=== PATIENT | female | born 1955 | race Caucasian/White ===

== ENCOUNTER 2017-11-15 18:33 | Emergency (ER) | payer OTHER ==
[~2017-11-15] VITALS: Ht 167.6 cm; Wt 72.6 kg
[~2017-11-15 18:33] MED LIST: ATEN100T44 PO; INSU100V9 SUBCUT; KLO.5; LIP20 PO; LISI-600 PO; METF1000 PO; NOR10 PO; NORT10CA PO; OMEP20CA10 PO; PARO40TA45 PO
[2017-11-15 18:53] VITALS: BP_SYST 136
[2017-11-15 19:16] LABS: BILIRUBIN,URINE NEGATIVE (NEGATIVE); BLOOD, URINE NEGATIVE (NEGATIVE); CLARITY/URINE CLEAR (CLEAR); COLOR,URINE YELLOW (YELLOW); GLUCOSE,URINE NEGATIVE (NEGATIVE); KETONES,URINE NEGATIVE (NEGATIVE); LEUKOCYTE ESTERASE ,URINE NEGATIVE (NEGATIVE); NITRITE, URINE NEGATIVE (NEGATIVE); PROTEIN URINE NEGATIVE (NEGATIVE); UROBILINOGEN,URINE 0.2 (0.2-1.0)
--- NOTE | 2017-11-15 19:46 | NUR ---
Patient to ER bed 07 to gown for evaluation. Side rails up.
--- NOTE | 2017-11-15 19:55 | NUR ---
Patient AOx4, ambulatory, presents to ER with complaint of abdominal pain radiating to bilateral flanks, painful urination, loss of appetite x2 days. Patient states GILL for a weeks. Patient states hx of recurring UTI. No other symptoms or complaints at this time.
[2017-11-15 20:17] LABS: BASOPHILS % (AUTO) 0.2 % (0.0-2.0); EOSINOPHILS # (AUTO) 0.1 K/uL (0.0-0.4); EOSINOPHILS % (AUTO) 0.4 % (0.0-4.0); LYMPHOCYTES # (AUTO) 4.7 K/uL (1.0-5.5); LYMPHOCYTES % (AUTO) 37.7 % (20.5-51.5); MEAN CORPUSCULAR HEMOGLOBIN 27 pg (27-31); MEAN CORPUSCULAR HGB CONC 33 % (32-36); MEAN CORPUSCULAR VOLUME 83 fL (79.0-98.0); MONOCYTES # (AUTO) 0.7 K/uL (0.0-1.0); MONOCYTES % (AUTO) 5.2 % (1.7-9.3); NEUTROPHILS % (AUTO) 56.5 % (40.0-70.0); PLATELET COUNT (AUTO) 346 K/uL (130-430); RED BLOOD CELL COUNT(AUTO) 5.52 MIL/uL (4.2-6.2); RED CELL DISTRIBUTION WIDTH 13.1 % (9.0-15.0); WHITE BLOOD COUNT (AUTO) 12.5 K/uL (4.8-10.8)
[2017-11-15 20:21] LABS: CALCIUM 9.7 mg/dL (8.4-11.0); CREATININE 1.11 mg/dL (0.55-1.30); POTASSIUM 3.9 mmol/L (3.5-5.1)
[2017-11-15 20:35] LABS: ALBUMIN 4.4 g/dL (3.4-4.8); TOTAL BILIRUBIN 1.3 mg/dL (0.0-1.0)
--- NOTE | 2017-11-15 20:49 | NUR ---
NUSRAT Kim at bedside for medical evaluation.
--- NOTE | 2017-11-15 21:15 | NUR ---
# 20 gauge angiocath placed to left hand. Use of asceptic technique. Opsite placed over site. Blood return noted. Flushed with 10 cc of normal saline. No evidence of infiltration noted. Patient tolerated well.
[2017-11-15] MEDS: KETOROLAC TROMETHAMINE 30 MG VIAL IVP ONE (21:21)
[2017-11-15] MEDS: NACL 0.9% 1,000 ML IV SCH (21:22)
[2017-11-15] MEDS: cefTRIAXone 1 GM IVPB PREMIX 50 ML IV ONE (21:22)
--- NOTE | 2017-11-15 21:30 | NUR ---
No adverse reactions noted after medication administration. Will continue to monitor.
--- NOTE | 2017-11-15 21:45 | NUR ---
IVF infusing with no s/s of infiltration at this time. Will cont to monitor.
[2017-11-15 21:59] VITALS: BP_SYST 129
--- NOTE | 2017-11-15 21:59 | NUR ---
Patient given written and verbal discharge instructions and verbalizes understanding. ER MD discussed with patient the results and treatment provided. Patient in stable condition. ID arm band removed. IV catheter removed intact and dressing applied, no active bleeding. Rx of Bactrim DS given. Patient educated on pain management and to follow up with PMD. Pain Scale 0/10. Opportunity for questions provided and answered.
== END 2017-11-15 21:59 | disposition home or self-care (01) ==
LOC: SED 18:33
DX: R30.0 Dysuria (principal); R10.30 Lower abdominal pain, unspecified; E11.9 Type 2 diabetes mellitus without complications; K21.9 Gastro-esophageal reflux disease without esophagitis; I10 Essential (primary) hypertension; E78.5 Hyperlipidemia, unspecified; Z86.79 Personal history of other diseases of the circulatory system; Z79.899 Other long term (current) drug therapy
CPT/HCPCS: 36415; 80053; 81003; 85025; 87086; 96365; 96375; 99284; J0696; J1885; J7030

== ENCOUNTER 2017-11-26 20:33 | Emergency (ER) | payer OTHER ==
[~2017-11-26] VITALS: Ht 167.6 cm; Wt 72.6 kg
[2017-11-26 20:38] VITALS: BP_SYST 140
[2017-11-26] MEDS ORDERED: SUMAtriptan SUCCINATE 50 MG TABLET PO ONE (20:45)
[2017-11-26] MEDS ORDERED: ONDANSETRON 4 MG ODT TAB PO ONE (20:45)
[2017-11-26] MEDS ORDERED: SUMAtriptan SUCCINATE 50 MG TABLET ONE (20:57)
[2017-11-26] MEDS ORDERED: KETOROLAC TROMETHAMINE 30 MG VIAL IM ONE (21:45)
[2017-11-26 22:30] VITALS: BP_SYST 133
[2017-11-26] MEDS ORDERED: DIPHENHYDRAMINE HCL 25 MG CAPSULE PO ONE (22:30)
[2017-11-26] MEDS ORDERED: traMADol HCL HCL 50 MG TABLET (ULTRAM) PO ONE (22:30)
== END 2017-11-26 22:30 | disposition home or self-care (01) ==
LOC: SED 20:33
DX: G43.909 Migraine, unspecified, not intractable, without status migrainosus (principal); E11.9 Type 2 diabetes mellitus without complications; K21.9 Gastro-esophageal reflux disease without esophagitis; I10 Essential (primary) hypertension; E78.5 Hyperlipidemia, unspecified; Z79.4 Long term (current) use of insulin; Z79.899 Other long term (current) drug therapy
CPT/HCPCS: 96372; 99283; J1885; Q0162; Q0163

== ENCOUNTER 2018-02-06 14:40 | Emergency (ER) | payer OTHER ==
[~2018-02-06] VITALS: Ht 167.6 cm; Wt 72.6 kg
[2018-02-06] MEDS ORDERED: NACL 0.9% 1,000 ML IV ONE (14:52)
[2018-02-06 14:53] VITALS: BP_SYST 90
[2018-02-06 15:21] LABS: BASOPHILS # (AUTO) 0.1 K/uL (0.0-0.2); BASOPHILS % (AUTO) 0.6 % (0.0-2.0); EOSINOPHILS # (AUTO) 0.2 K/uL (0.0-0.4); EOSINOPHILS % (AUTO) 2.5 % (0.0-4.0); HEMATOCRIT 44.2 % (36-48); HEMOGLOBIN 14.1 g/dL (12.0-16.0); LYMPHOCYTES # (AUTO) 2.7 K/uL (1.0-5.5); MEAN CORPUSCULAR HEMOGLOBIN 27 pg (27-31); MEAN CORPUSCULAR HGB CONC 32 % (32-36); MEAN CORPUSCULAR VOLUME 83 fL (79.0-98.0); MONOCYTES # (AUTO) 0.7 K/uL (0.0-1.0); MONOCYTES % (AUTO) 7.5 % (1.7-9.3); NEUTROPHILS # (AUTO) 5.2 K/uL (1.8-7.7); NEUTROPHILS % (AUTO) 58.4 % (40.0-70.0); PLATELET COUNT (AUTO) 265 K/uL (130-430); RED BLOOD CELL COUNT(AUTO) 5.32 MIL/uL (4.2-6.2); RED CELL DISTRIBUTION WIDTH 13.9 % (9.0-15.0); WHITE BLOOD COUNT (AUTO) 8.9 K/uL (4.8-10.8)
[2018-02-06 15:34] LABS: PROTHROMBIN TIME 10.5 SECS (9.5-12.5)
[2018-02-06 15:44] LABS: BILIRUBIN,URINE NEGATIVE (NEGATIVE); BLOOD, URINE 1+ (NEGATIVE); CLARITY/URINE CLOUDY (CLEAR); COLOR,URINE YELLOW (YELLOW); GLUCOSE,URINE NEGATIVE (NEGATIVE); KETONES,URINE TRACE (NEGATIVE); LEUKOCYTE ESTERASE ,URINE 2+ (NEGATIVE); NITRITE, URINE POSITIVE (NEGATIVE); PH,URINE 5.5 (5.0-8.0); PROTEIN URINE 2+ (NEGATIVE); UROBILINOGEN,URINE 0.2 (0.2-1.0)
[2018-02-06 15:45] LABS: BACTERIA,URINE MANY /HPF (None Seen); WBC,URINE >100 /HPF (0-3)
[2018-02-06 15:46] LABS: MUCUS,URINE None Seen /LPF (None Seen)
[2018-02-06] MEDS ORDERED: cefTRIAXone 1 GM in D5W 50 ML IV ONE (16:15)
[2018-02-06 16:21] LABS: ANION GAP 16 (5-15); CALCIUM 9.6 mg/dL (8.4-11.0); CHLORIDE 95 mmol/L (98-107); CREATININE 2.08 mg/dL (0.55-1.30); POTASSIUM 4.1 mmol/L (3.5-5.1); SODIUM SERUM 132 mmol/L (136-145); UREA NITROGEN, BLOOD 22 mg/dL (8-21)
[2018-02-06 16:24] LABS: GFR AFRICAN AMERICAN 31 mL/min (>90)
[2018-02-06 16:25] LABS: ALANINE AMINOTRANSFERASE 62 U/L (12-78); ALBUMIN 4.4 g/dL (3.4-4.8); ASPARTATE AMINOTRANSFERASE 44 U/L (10-37); LIPASE 127 U/L (73-393); TOTAL BILIRUBIN 1.3 mg/dL (0.0-1.0)
[2018-02-06 16:30] LABS: ALCOHOL, BLOOD < 3 mg/dL (<10); GLUCOSE 417 mg/dL (70-99)
[2018-02-06] MEDS ORDERED: cefTRIAXone 1 GM VIAL ONE (16:49)
[2018-02-06] MEDS ORDERED: INSULIN REGULAR, HUMAN 10 UNITS/0.1 ML INJ IVP ONE (17:00)
[2018-02-06 17:09] LABS: CKMB RELATIVE INDEX 0.9 (0.0-2.9)
[2018-02-06 17:16] LABS: BARBITURATE, URINE NEGATIVE (NEG <=200); BENZODIAZEPINE, URINE NEGATIVE (NEG <=150); CANNABINOID, URINE NEGATIVE (NEG <=50); COCAINE, URINE NEGATIVE (NEG <=150); METHAMPHETAMINES SCREEN,URINE NEGATIVE (NEG <=500); OPIATE, URINE NEGATIVE (NEG <=100); PHENCYCLIDINE SCREEN,URINE NEGATIVE (NEG <=25); UR TRICYCLIC ANTIDEPRESSANTS NEGATIVE (NEG <=300); URINE AMPHETAMINE NEGATIVE (NEG <=500); URINE METHADONE NEGATIVE (NEG <=200); URINE OXYCODONE SCREEN NEGATIVE (NEG <=100); URINE PROPOXYPHENE SCREEN NEGATIVE (NEG <=300)
[2018-02-06] MEDS ORDERED: ACETAMINOPHEN 500 MG TABLET PO ONE (17:45)
[2018-02-06] MEDS ORDERED: MECLIZINE HCL 25 MG TABLET (ANITVERT) PO ONE (17:45)
[2018-02-06 17:55] LABS: CREATININE 1.71 mg/dL (0.55-1.30); POTASSIUM 3.6 mmol/L (3.5-5.1)
[2018-02-06 19:21] VITALS: BP_SYST 140
== END 2018-02-06 19:21 | disposition home or self-care (01) ==
LOC: SED 14:40
DX: N30.90 Cystitis, unspecified without hematuria (principal); N39.0 Urinary tract infection, site not specified; E11.9 Type 2 diabetes mellitus without complications; K21.9 Gastro-esophageal reflux disease without esophagitis; I10 Essential (primary) hypertension; E78.5 Hyperlipidemia, unspecified; Z90.49 Acquired absence of other specified parts of digestive tract; Z90.710 Acquired absence of both cervix and uterus; Z79.899 Other long term (current) drug therapy
CPT/HCPCS: 36415; 71045; 74176; 80048; 80053; 80307; 81000; 82550; 82553; 83690; 84484; 85025; 85610; 85730; 87086; 87186; 93005; 96361; 96365; 96375; 99285; G0482; J0696; J7030; J8597; J1815

== ENCOUNTER 2018-07-25 12:15 | Emergency (ER) | payer OTHER ==
[~2018-07-25] VITALS: Ht 167.6 cm; Wt 74.8 kg
[~2018-07-25 12:15] MED LIST changes: +ATEN-168 PO; -ATEN100T44 PO; +PARO40TA PO; -PARO40TA45 PO
[2018-07-25 12:24] VITALS: BP_SYST 148
--- NOTE | 2018-07-25 12:30 | NUR ---
ER at bedside examining patient.
--- NOTE | 2018-07-25 12:30 | NUR ---
Patient to ER bed 3 to gown for evaluation. Side rails up. Report given to Donal MILLER.
--- NOTE | 2018-07-25 12:35 | NUR ---
Pt presents to ER c/o 05/27 pain to L side of body s/p mechanical fall this morning. Pt denies loss of consciousness, denies head traumal. Pt AOX4, ambulatory, denies nausea or vomiting.
[2018-07-25] MEDS ORDERED: KETOROLAC TROMETHAMINE 60 MG/2 ML VIAL IM ONE (12:45)
--- NOTE | 2018-07-25 12:47 | NUR ---
Pt taken to radiology via gurney in stable condition
--- NOTE | 2018-07-25 13:04 | NUR ---
Pt returned from radiology via rrye in stable condition
--- NOTE | 2018-07-25 13:06 | NUR ---
Toradol 60mg IM to R gluteus justin administered. Pt tolerated well. No adverse reactions noted.
--- NOTE | 2018-07-25 13:43 | NUR ---
Dr. Ruby at bedside speaking with pt discussing results.
[2018-07-25 13:53] VITALS: BP_SYST 133
--- NOTE | 2018-07-25 13:53 | NUR ---
Patient given written and verbal discharge instructions and verbalizes understanding. ER MD Ruby discussed with patient the results and treatment provided. Patient in stable condition. ID arm band removed. Rx of Motrin given. Patient educated on pain management and to follow up with PMD. Pain Scale 0. Opportunity for questions provided and answered. Medication side effect fact sheet provided.
== END 2018-07-25 13:53 | disposition home or self-care (01) ==
LOC: SED 12:15
DX: S70.02XA Contusion of left hip, initial encounter (principal); S80.02XA Contusion of left knee, initial encounter; K21.9 Gastro-esophageal reflux disease without esophagitis; E78.5 Hyperlipidemia, unspecified; E11.9 Type 2 diabetes mellitus without complications; I10 Essential (primary) hypertension; Z86.79 Personal history of other diseases of the circulatory system; Z79.899 Other long term (current) drug therapy; W10.9XXA Fall (on) (from) unspecified stairs and steps, initial encounter; Y93.89 Activity, other specified; Y92.89 Other specified places as the place of occurrence of the external cause; Y99.8 Other external cause status
CPT/HCPCS: 73502; 73590; 96372; 99284; J1885

== ENCOUNTER 2019-02-13 19:05 | Emergency (ER) | payer OTHER ==
[~2019-02-13] VITALS: Ht 167.6 cm; Wt 77.1 kg
[2019-02-13 19:14] VITALS: BP_SYST 164
[2019-02-13] MEDS ORDERED: ASPIRIN 81 MG TAB.CHEW PO ONE (19:30)
[2019-02-13 20:00] LABS: BASOPHILS % (AUTO) 0.7 % (0.0-2.0); EOSINOPHILS # (AUTO) 0.3 K/uL (0.0-0.4); HEMATOCRIT 37.9 % (36-48); HEMOGLOBIN 12.8 g/dL (12.0-16.0); LYMPHOCYTES # (AUTO) 3.1 K/uL (1.0-5.5); LYMPHOCYTES % (AUTO) 45.7 % (20.5-51.5); MEAN CORPUSCULAR HEMOGLOBIN 28 pg (27-31); MEAN CORPUSCULAR HGB CONC 34 % (32-36); MEAN CORPUSCULAR VOLUME 83 fL (79.0-98.0); MONOCYTES # (AUTO) 0.6 K/uL (0.0-1.0); MONOCYTES % (AUTO) 8.7 % (1.7-9.3); NEUTROPHILS # (AUTO) 2.7 K/uL (1.8-7.7); NEUTROPHILS % (AUTO) 40.9 % (40.0-70.0); PLATELET COUNT (AUTO) 209 K/uL (130-430); RED BLOOD CELL COUNT(AUTO) 4.54 MIL/uL (4.2-6.2); RED CELL DISTRIBUTION WIDTH 14.2 % (9.0-15.0); WHITE BLOOD COUNT (AUTO) 6.7 K/uL (4.8-10.8)
[2019-02-13] MEDS ORDERED: NITROGLYCERIN 0.4 MG TAB.SUBL SL ONE (20:15)
[2019-02-13 20:18] LABS: CALCIUM 8.7 mg/dL (8.4-11.0); CREATININE 0.78 mg/dL (0.55-1.30); POTASSIUM 3.6 mmol/L (3.5-5.1)
[2019-02-13 20:21] LABS: PROTHROMBIN TIME 9.9 SECS (9.5-12.5)
[2019-02-13 20:23] LABS: ALBUMIN 3.8 g/dL (3.4-4.8); TOTAL BILIRUBIN 0.7 mg/dL (0.0-1.0)
[2019-02-13 20:51] LABS: CKMB RELATIVE INDEX 2.2 (0.0-2.9); CREATINE KINASE MB 6.1 ng/mL (0-3.6)
[2019-02-13] MEDS ORDERED: MORPHINE 4 MG/ML INJ. SYRINGE IVP ONE (22:00)
[2019-02-13 23:21] VITALS: BP_SYST 129
[2019-02-14] MEDS ORDERED: LEVALBUTEROL HCL 0.63 MG/3 ML VIAL.NEB INH ONE (08:07)
== END 2019-02-13 23:21 | disposition short-term general hospital (02) ==
LOC: SED 19:05
DX: R07.89 Other chest pain (principal); K21.9 Gastro-esophageal reflux disease without esophagitis; E11.9 Type 2 diabetes mellitus without complications; I10 Essential (primary) hypertension; Z86.79 Personal history of other diseases of the circulatory system; Z90.49 Acquired absence of other specified parts of digestive tract; Z90.710 Acquired absence of both cervix and uterus; Z79.899 Other long term (current) drug therapy
CPT/HCPCS: 36415; 71045; 80053; 82550; 82553; 84484; 85025; 85379; 85610; 85730; 96374; 99285; J2270; 93005; J7614

== ENCOUNTER 2019-12-02 14:32 | Emergency (ER) | payer OTHER ==
[~2019-12-02] VITALS: Ht 167.6 cm; Wt 77.1 kg
[~2019-12-02 14:32] MED LIST changes: -OMEP20CA10 PO; +OMEP20CA11 PO
[2019-12-02 15:09] VITALS: BP_SYST 164
== END 2019-12-02 17:06 | disposition left against medical advice (07) ==
LOC: SED 14:32
DX: R73.9 Hyperglycemia, unspecified (principal); Z53.21 Procedure and treatment not carried out due to patient leaving prior to being seen by health care provider
CPT/HCPCS: 82962

== ENCOUNTER 2020-04-17 16:12 | Emergency (ER) | payer OTHER ==
[~2020-04-17] VITALS: Ht 167.6 cm; Wt 79.4 kg
[2020-04-17 16:20] VITALS: BP_SYST 161
--- NOTE | 2020-04-17 17:10 | NUR ---
Patient to ER bed HALLWAY to gown for evaluation. Side rails up. Report RECEIVED.
--- NOTE | 2020-04-17 17:12 | NUR ---
ER at bedside examining patient.
[2020-04-17 17:20] VITALS: BP_SYST 161
--- NOTE | 2020-04-17 17:20 | NUR ---
Patient given written and verbal discharge instructions and verbalizes understanding. DR. CLARISSA SILVERIO MD discussed with patient the results and treatment provided. Patient in stable condition. ID arm band removed. Rx of DEBROX given. Patient educated on pain management and to follow up with PMD. Pain Scale 0/10. Opportunity for questions provided and answered. Medication side effect fact sheet provided.
== END 2020-04-17 17:20 | disposition home or self-care (01) ==
LOC: SED 16:12
DX: H61.23 Impacted cerumen, bilateral (principal); I10 Essential (primary) hypertension; E11.9 Type 2 diabetes mellitus without complications; K21.9 Gastro-esophageal reflux disease without esophagitis; Z86.73 Personal history of transient ischemic attack (TIA), and cerebral infarction without residual deficits; Z90.49 Acquired absence of other specified parts of digestive tract; Z90.710 Acquired absence of both cervix and uterus; Z79.899 Other long term (current) drug therapy; Z79.4 Long term (current) use of insulin
CPT/HCPCS: 99282

== ENCOUNTER 2020-07-02 12:08 | Emergency (ER) | payer OTHER ==
[~2020-07-02] VITALS: Ht 167.6 cm; Wt 77.1 kg
[2020-07-02 12:27] VITALS: BP_SYST 143
--- NOTE | 2020-07-02 15:40 | NUR ---
Patient to ER bed H1 for evaluation.
--- NOTE | 2020-07-02 15:42 | NUR ---
Patient arrived in the ED c/o low blood pressure, headaches, back pain and weakness that started 2 days ago. Denied any chest pain or shortness of breath. Denied any fevers, chills, nausea or vomiting. Patient is alert and oriented x4, respirations even and unlabored, speaking in full sentences, and ambulating with a steady gait. VSS, pain level 5/10. Informed of the approximate wait time. Instructed to notify ED staff for any changes in condition or worsening of symptoms while waiting to be seen by an ED provider. Patient verbalized understanding.
--- NOTE | 2020-07-02 15:55 | NUR ---
ER Dr. Cabrera at bedside examining patient.
--- NOTE | 2020-07-02 16:39 | NUR ---
Patient given written and verbal discharge instructions and verbalizes understanding. ER MD discussed with patient the results and treatment provided. Patient in stable condition. ID arm band removed. No Rx given. Patient educated on pain management and to follow up with PMD. Pain Scale 0/10. Opportunity for questions provided and answered. Medication side effect fact sheet provided.
[2020-07-02 16:40] VITALS: BP_SYST 138
== END 2020-07-02 16:40 | disposition home or self-care (01) ==
LOC: SED 12:08
DX: R09.89 Other specified symptoms and signs involving the circulatory and respiratory systems (principal); I10 Essential (primary) hypertension; E11.9 Type 2 diabetes mellitus without complications; K21.9 Gastro-esophageal reflux disease without esophagitis; Z79.899 Other long term (current) drug therapy; Z79.4 Long term (current) use of insulin
CPT/HCPCS: 99281

== ENCOUNTER 2020-10-08 14:18 | Emergency (ER) | payer OTHER, SELFPAY ==
[~2020-10-08] VITALS: Ht 167.6 cm; Wt 74.8 kg
[~2020-10-08 14:18] MED LIST changes: -OMEP20CA11 PO; +OMEP20CA15 PO
[2020-10-08 14:20] VITALS: BP_SYST 135
--- NOTE | 2020-10-08 14:20 | NUR ---
TRIAGED AND PT TO REMAIN IN TENT UNTIL AVAILABLE ER BED.
--- NOTE | 2020-10-08 15:10 | NUR ---
DR RHODES OUTSIDE TO TENT FOR EVALUATION
--- NOTE | 2020-10-08 16:00 | NUR ---
Patient given written and verbal discharge instructions and verbalizes understanding. ER MD discussed with patient the results and treatment provided. Patient in stable condition. ID arm band removed. Rx of NONE given. Patient educated on pain management and to follow up with PMD. Pain Scale 0/10. Opportunity for questions provided and answered. Medication side effect fact sheet provided.
== END 2020-10-08 16:00 | disposition home or self-care (01) ==
LOC: SED 14:18
DX: B34.9 Viral infection, unspecified (principal); I10 Essential (primary) hypertension; E11.9 Type 2 diabetes mellitus without complications; K21.9 Gastro-esophageal reflux disease without esophagitis; Z86.73 Personal history of transient ischemic attack (TIA), and cerebral infarction without residual deficits; Z79.899 Other long term (current) drug therapy; Z79.4 Long term (current) use of insulin; Z20.828 Contact with and (suspected) exposure to other viral communicable diseases
CPT/HCPCS: 99283; C9803; U0003

== ENCOUNTER 2022-07-29 07:44 | Observation (INO) | payer OTHER, MEDICAID ==
[~2022-07-29] VITALS: Ht 167.6 cm; Wt 73.5 kg
[~2022-07-29 07:44] MED LIST changes: -LISI-600 PO; +LISI20TA30 PO; +NIRM1TAB PO
[2022-07-29 07:50] VITALS: BP_SYST 133
--- NOTE | 2022-07-29 07:50 | NUR ---
RECEIVED PT FROM PAUL ROLDAN. DR. ROMO AT BEDSIDE TO ASSESS PT. PT BIBS WITH C/O PRODUCTIVE COUGH WITH GREEN EXPECTORANT AND C/P. PT IS AAOX4, DIAPHORETIC. NORMAL S1S2 NOTED. RESP E/U. ON R/A. VSS. ABDOMEN SOFT, NONTENDER, NONDISTENDED. DENIES N/V/C/D. DISTAL PULSES NORMAL, SKIN WARM, INTACT, NO EDEMA. SIDERAILS UP X2.
--- NOTE | 2022-07-29 08:02 | NUR ---
EKG AND CXR OBTAINED.
--- NOTE | 2022-07-29 08:25 | NUR ---
# 22 gauge angiocath placed to LFA. Use of asceptic technique. Opsite placed over site. Blood return noted. Blood for lab drawn from site. Flushed with 10 cc of normal saline. No evidence of infiltration noted. Patient tolerated well. LABS OBTAINED.
--- NOTE | 2022-07-29 08:45 | NUR ---
CONFIRMED NITRO TOPICAL ORDER WITH DR. ROMO WHO STATED, "PLEASE GIVE NITRO PASTE TOPICAL X1 NOW.
[2022-07-29 08:46] LABS: BASOPHILS # (AUTO) 0.2 K/uL (0.0-0.2); BASOPHILS % (AUTO) 2.5 % (0.0-2.0); EOSINOPHILS # (AUTO) 0.2 K/uL (0.0-0.4); EOSINOPHILS % (AUTO) 1.6 % (0.0-4.0); HEMATOCRIT 45.2 % (36-48); HEMOGLOBIN 15.2 g/dL (12.0-16.0); LYMPHOCYTES # (AUTO) 2.6 K/uL (1.0-5.5); LYMPHOCYTES % (AUTO) 26.4 % (20.5-51.5); MEAN CORPUSCULAR HEMOGLOBIN 29 pg (27-31); MEAN CORPUSCULAR HGB CONC 34 % (32-36); MEAN CORPUSCULAR VOLUME 85 fL (79.0-98.0); MONOCYTES # (AUTO) 0.6 K/uL (0.0-1.0); MONOCYTES % (AUTO) 5.7 % (1.7-9.3); NEUTROPHILS # (AUTO) 6.4 K/uL (1.8-7.7); NEUTROPHILS % (AUTO) 63.8 % (40.0-70.0); PLATELET COUNT (AUTO) 266 K/uL (130-430); RED BLOOD CELL COUNT(AUTO) 5.35 MIL/uL (4.2-6.2); RED CELL DISTRIBUTION WIDTH 14.1 % (9.0-15.0)
--- NOTE | 2022-07-29 08:57 | NUR ---
PT DIAPHORETIC, BS 357.
[2022-07-29] MEDS ORDERED: MORPHINE 4 MG INJ. 4 MG/ML VIAL IVP ONE ×2 (09:00→09:15)
[2022-07-29] MEDS ORDERED: NITROGLYCERIN 1 INCH (GM) OINT. TP ONE ×2 (09:00→23:30)
[2022-07-29] MEDS ORDERED: ENOXAPARIN SODIUM 60 MG/0.6 ML SYRINGE SUBCUT ONE (09:00)
[2022-07-29 09:14] LABS: CALCIUM 9.2 mg/dL (8.4-11.0); CREATININE 1.31 mg/dL (0.55-1.30); POTASSIUM 4.4 mmol/L (3.5-5.1)
[2022-07-29] MEDS ORDERED: ASPIRIN 325 MG TABLET (ECOTRIN) PO ONE (09:15)
[2022-07-29 09:20] LABS: ALBUMIN 3.8 g/dL (3.4-4.8); TOTAL BILIRUBIN 2.4 mg/dL (0.0-1.0)
--- NOTE | 2022-07-29 09:28 | NUR ---
DR. ROMO MADE AWARE THAT PT'S TROPONIN 84.
[2022-07-29] MEDS ORDERED: ONDANSETRON HCL 4 MG/2 ML VIAL IVP ONE (09:45)
[2022-07-29] MEDS ORDERED: LIP20 PO (09:53)
[2022-07-29] MEDS ORDERED: FLUT16SP16 NS (09:53)
[2022-07-29] MEDS ORDERED: CHOLESTYRAMINE PO (09:53)
[2022-07-29] MEDS ORDERED: SEMA1PEN3 SQ (09:53)
[2022-07-29] MEDS ORDERED: VENL37.55 PO (09:53)
[2022-07-29] MEDS ORDERED: OMEP20CA15 PO (09:53)
[2022-07-29] MEDS ORDERED: GABA-529 PO (09:53)
[2022-07-29] MEDS ORDERED: L.RH1CAP PO (09:53)
[2022-07-29] MEDS ORDERED: BUSP10TA3 PO (09:53)
[2022-07-29] MEDS ORDERED: CETI10CA PO (09:53)
[2022-07-29] MEDS ORDERED: INSU100V7 SUBCUT (09:53)
[2022-07-29] MEDS ORDERED: LISI20TA30 PO (09:53)
[2022-07-29] MEDS ORDERED: ATEN100T PO (09:53)
--- NOTE | 2022-07-29 09:55 | NUR ---
DR. JANG AT BEDSIDE TO ASSESS PT AND DISCUSS POC.
--- NOTE | 2022-07-29 09:55 | NUR ---
URINE OBTAINED AND TAKEN TO LAB.
[2022-07-29] MEDS ORDERED: NACL 0.9% 2,000 ML IV ONE (10:00)
--- NOTE | 2022-07-29 10:03 | NUR ---
MED REC COMPLETED, BELONGINGS LIST COMPLETED, URINE OBTAINED.
--- NOTE | 2022-07-29 10:10 | NUR ---
[facility] OBTAINED AND TAKEN TO LAB.
[2022-07-29] MEDS ORDERED: 0.45% NACL 1,000 ML IV ONE (10:15)
[2022-07-29] MEDS ORDERED: cefTRIAXone 1 GM VIAL ONE (10:28)
[2022-07-29] MEDS ORDERED: LIPASE/PROTEASE/AMYLASE 1 CAP PO ONE (10:30)
[2022-07-29 10:31] LABS: BILIRUBIN,URINE NEGATIVE (NEGATIVE); BLOOD, URINE NEGATIVE (NEGATIVE); CLARITY/URINE CLEAR (CLEAR); COLOR,URINE YELLOW (YELLOW); GLUCOSE,URINE 1+ (NEGATIVE); KETONES,URINE NEGATIVE (NEGATIVE); LEUKOCYTE ESTERASE ,URINE 2+ (NEGATIVE); NITRITE, URINE NEGATIVE (NEGATIVE); PROTEIN URINE NEGATIVE (NEGATIVE); UROBILINOGEN,URINE 0.2 (0.2-1.0)
--- NOTE | 2022-07-29 10:37 | NUR ---
Admit bed requested Patient will be admitted to care of . Admitted to TELEMETRY unit. Diagnosis CHEST PAIN Inpatient (Yes or No) NO Observation (Yes or No) YES Orientation concerns or request close to nursing station (Yes or No) NO Covid Status PENDING On vent or bipap NO Isolation requirements PENDING Needs a sitter NO From Home (Yes or if No enter name of facility) YES Requires Dialysis (Yes or No) NO Med Rec Completed (Yes of No) YES
[2022-07-29] MEDS: INSULIN GLARGINE 100 UNITS/ML, 10 ML VIAL SUBCUT SCH (10:40)
[2022-07-29 10:55] LABS: BACTERIA,URINE FEW /HPF (None Seen); MUCUS,URINE 1+ /LPF (None Seen); RBC,URINE 0-3 /HPF (0-3)
[2022-07-29] MEDS ORDERED: cefTRIAXone 1 GM in D5W 50 ML IV ONE (11:00)
--- NOTE | 2022-07-29 11:57 | NUR ---
Patient will be admitted to care of PAUL Dong. Admitted to telemetry unit. Will go to room 118a. Belongings list completed. Complete and up to date summary report printed. SBAR report to be given at bedside with opportunity for questions.
[2022-07-29 12:15] VITALS: BP_SYST 127
--- NOTE | 2022-07-29 12:22 | NUR ---
CONSULTATION PAGED0= REASON FOR CONSULTATION:CHEST PAIN WAS CONSULT CALLED?Y PERSON WHO WAS NOTIFIED:ALMA BRUNSON CONSULTING PHYSICIAN:ALMA HO MANAGER MEDIA RELATIONS SPECIALTY:CARDIO MANAGER MEDIA RELATIONS PHONE NUMBER:[phone] REQUESTING PHYSICIAN:RAJ ARGUETA
--- NOTE | 2022-07-29 12:30 | NUR ---
RECEIVED PT FROM E.RGladys WITH DIAGNOSIS OF CHEST PAIN, PT WILL BE UNDER THE CARE OF DR JANG. PT EDUCATED ON THE USE OF CALLLIGHT, TV AND BED CONTROLS, ENCOURAGED TO CALL FO ASSIST, AND ANY CONCERNS. CALL LIGHT IN REACH, BED, IN LOW POSITION.
[2022-07-29] MEDS ORDERED: NPH,100I SQ (13:27)
[2022-07-29 13:31] VITALS: BP_SYST 127
--- NOTE | 2022-07-29 15:30 | NUR ---
DR JANG PAGED THRU HIS EXCHANGE FOR PT'S MEDICATION RECONCILIATION.
[2022-07-29] MEDS ORDERED: NON-FORMULARY MEDICATION (Cetirizine Hcl (Zyrtec) 10 MG) PO SCH (15:45)
[2022-07-29] MEDS ORDERED: PARoxetine HCL 20 MG TABLET PO SCH (15:45)
[2022-07-29] MEDS ORDERED: SSNPH SQ ×2 (15:57→16:17)
[2022-07-29] MEDS ORDERED: SEMA0.25 SQ (15:57)
[2022-07-29] MEDS ORDERED: LACTOBACILLUS RHAMNOSUS GG 1 CAP CAPSULE PO ONE (16:00)
[2022-07-29] MEDS ORDERED: ATENOLOL 50 MG TABLET (TENORMIN) PO ONE (16:00)
[2022-07-29] MEDS ORDERED: LORATADINE 10 MG TABLET PO ONE (16:15)
[2022-07-29] MEDS ORDERED: PANTOPRAZOLE SODIUM 40 MG TAB PO ONE (16:15)
[2022-07-29] MEDS ORDERED: Effexor XR 37.5 MG PO ONE (16:15)
--- NOTE | 2022-07-29 18:00 | NUR ---
PT'S AT BEDSIDE. UPDATED WITH PT'S POC AND STATUS.
[2022-07-29] MEDS: LIPASE/PROTEASE/AMYLASE 1 CAP PO SCH (18:10)
[2022-07-29 18:15] VITALS: BP_SYST 128
[2022-07-29 20:00] VITALS: BP_SYST 127
[2022-07-29] MEDS: CHOLESTYRAMINE/SUCROSE 4 GM/PACKET PO SCH (20:47)
[2022-07-29] MEDS: ATORVASTATIN 20 MG TABLET PO SCH (20:49)
[2022-07-29] MEDS: GABAPENTIN 300 MG CAPSULE PO SCH (20:49)
[2022-07-29] MEDS: lisinopriL 20 MG TABLET PO SCH (20:50)
[2022-07-29] MEDS: busPIRone HCL 5 MG TABLET PO SCH (20:50)
[2022-07-29] MEDS: [UNRECOGNIZED DRUG - OTHER] SUBCUT SCH (20:58)
[2022-07-29] MEDS ORDERED: NORTRIPTYLINE HCL 25 MG CAPSULE PO SCH (21:00)
[2022-07-30 07:35] LABS: BASOPHILS # (AUTO) 0.1 K/uL (0.0-0.2); BASOPHILS % (AUTO) 0.8 % (0.0-2.0); EOSINOPHILS # (AUTO) 0.2 K/uL (0.0-0.4); EOSINOPHILS % (AUTO) 3.1 % (0.0-4.0); LYMPHOCYTES # (AUTO) 2.9 K/uL (1.0-5.5); LYMPHOCYTES % (AUTO) 41.4 % (20.5-51.5); MEAN CORPUSCULAR HEMOGLOBIN 29 pg (27-31); MEAN CORPUSCULAR HGB CONC 34 % (32-36); MEAN CORPUSCULAR VOLUME 84 fL (79.0-98.0); MONOCYTES # (AUTO) 0.8 K/uL (0.0-1.0); MONOCYTES % (AUTO) 10.8 % (1.7-9.3); NEUTROPHILS # (AUTO) 3.1 K/uL (1.8-7.7); NEUTROPHILS % (AUTO) 43.9 % (40.0-70.0); PLATELET COUNT (AUTO) 192 K/uL (130-430); RED BLOOD CELL COUNT(AUTO) 4.55 MIL/uL (4.2-6.2); RED CELL DISTRIBUTION WIDTH 13.6 % (9.0-15.0)
[2022-07-30 07:54] VITALS: BP_SYST 139
[2022-07-30 08:02] LABS: CALCIUM 8.4 mg/dL (8.4-11.0); CREATININE 1.02 mg/dL (0.55-1.30); POTASSIUM 3.9 mmol/L (3.5-5.1)
[2022-07-30] MEDS: PANTOPRAZOLE SODIUM 40 MG TAB PO SCH (08:08)
[2022-07-30] MEDS: LIPASE/PROTEASE/AMYLASE 1 CAP PO SCH ×3 (08:09→17:45)
[2022-07-30] MEDS: FLUTICASONE PROPIONATE 50 mCg/SPRAY 16 GM NS SCH (08:09)
[2022-07-30] MEDS: busPIRone HCL 5 MG TABLET PO SCH ×2 (08:09→20:44)
[2022-07-30] MEDS: LORATADINE 10 MG TABLET PO SCH (08:09)
[2022-07-30] MEDS: CHOLESTYRAMINE/SUCROSE 4 GM/PACKET PO SCH ×2 (08:09→20:45)
[2022-07-30] MEDS: LACTOBACILLUS RHAMNOSUS GG 1 CAP CAPSULE PO SCH (08:09)
[2022-07-30] MEDS: Effexor XR 37.5 MG PO SCH (08:11)
[2022-07-30] MEDS: lisinopriL 20 MG TABLET PO SCH (08:12)
[2022-07-30] MEDS: ATENOLOL 50 MG TABLET (TENORMIN) PO SCH (08:12)
[2022-07-30] MEDS: GABAPENTIN 300 MG CAPSULE PO SCH ×2 (08:15→20:44)
[2022-07-30] MEDS: INSULIN GLARGINE 100 UNITS/ML, 10 ML VIAL SUBCUT SCH (08:19)
[2022-07-30] MEDS: [UNRECOGNIZED DRUG - OTHER] SUBCUT SCH (08:19)
[2022-07-30] MEDS ORDERED: cefTRIAXone 1 GM in D5W 50 ML IV SCH (11:00)
--- NOTE | 2022-07-30 11:42 | NUR ---
PT'S BS IS 59, PT DENIES ANY SYMPTOMS OF HYPOGLYCEMIA. PT GIVEN OJ AND CRACKERS, BLOOD SUGAR WENT UP AND NORMALIZED AFTER 30 MINUTES. WILL INFORM MD.
[2022-07-30] MEDS: cefTRIAXone 1 GM IVPB PREMIX 50 ML IV SCH (11:44)
[2022-07-30 12:00] VITALS: BP_SYST 135
[2022-07-30 16:10] VITALS: BP_SYST 121
--- NOTE | 2022-07-30 17:46 | NUR ---
pt checked her blood sugar using her machine and it was 58. pt denies any shakiness, pt is alert and oriented and taking on the phone with her family. pt provided with orange juice and crackers.
[2022-07-30] MEDS ORDERED: VALSARTAN 160 MG TABLET (DIOVAN) PO SCH (18:30)
--- NOTE | 2022-07-30 18:37 | NUR ---
PAGED DR MICH MEJÍA MD COVERING FOR DR JANG TO GET ORDER FOR PAIN MED, TRAMADOL AND INFORM MD OF PT'S BLOOD SUGAR OF 58 THIS PM.
[2022-07-30] MEDS ORDERED: LOSARTAN POTASSIUM 50 MG TABLET (COZAAR) PO ONE (18:45)
[2022-07-30] MEDS ORDERED: AMYL1CAP54 PO (18:48)
[2022-07-30] MEDS ORDERED: LOSA50TA3 PO (18:48)
[2022-07-30] MEDS ORDERED: CEPH250C PO (18:48)
[2022-07-30] MEDS ORDERED: D5/0.45 NS 1,000 ML IV SCH (19:15)
[2022-07-30 20:04] VITALS: BP_SYST 132
[2022-07-30] MEDS: ATORVASTATIN 20 MG TABLET PO SCH (20:44)
[2022-07-30] MEDS: traMADol HCL HCL 50 MG TABLET (ULTRAM) PO PRN (22:54)
[2022-07-31 08:01] VITALS: BP_SYST 117
--- NOTE | 2022-07-31 08:01 | NUR ---
INITIAL ROUNDS Received pt AAOx4, no s/s resp distress, no c/o pain or discomfort. IVF infusing well at ordered rate with no s/s infiltration to site. Plan of care for the day reviewed with pt-pt verbalized her understanding, pt hopes to be discharged home today. Pain management, disease pricess, skin and safety discussed-teach back done. Call light within reach.
[2022-07-31] MEDS: busPIRone HCL 5 MG TABLET PO SCH (08:53)
[2022-07-31] MEDS: LACTOBACILLUS RHAMNOSUS GG 1 CAP CAPSULE PO SCH (08:54)
[2022-07-31] MEDS: LORATADINE 10 MG TABLET PO SCH (08:55)
[2022-07-31] MEDS: GABAPENTIN 300 MG CAPSULE PO SCH (08:55)
[2022-07-31] MEDS: ATENOLOL 50 MG TABLET (TENORMIN) PO SCH (08:56)
[2022-07-31] MEDS: CHOLESTYRAMINE/SUCROSE 4 GM/PACKET PO SCH (08:56)
[2022-07-31] MEDS: Effexor XR 37.5 MG PO SCH (08:57)
[2022-07-31] MEDS: PANTOPRAZOLE SODIUM 40 MG TAB PO SCH (08:58)
[2022-07-31] MEDS: FLUTICASONE PROPIONATE 50 mCg/SPRAY 16 GM NS SCH (08:58)
[2022-07-31] MEDS ORDERED: LOSARTAN POTASSIUM 50 MG TABLET (COZAAR) PO SCH (09:00)
[2022-07-31] MEDS: LIPASE/PROTEASE/AMYLASE 1 CAP PO SCH ×2 (09:01→12:22)
[2022-07-31] MEDS: cefTRIAXone 1 GM IVPB PREMIX 50 ML IV SCH (11:26)
[2022-07-31 11:45] VITALS: BP_SYST 95
[2022-07-31] MEDS ORDERED: INSU100V9 SQ (11:51)
[2022-07-31] MEDS: traMADol HCL HCL 50 MG TABLET (ULTRAM) PO PRN (12:23)
--- NOTE | 2022-07-31 12:52 | NUR ---
Pt seen by Dr. Larson-order given for discharge home, med rec done. Per Dr. Neo saldivar to D/C pt home and the case resource manager from [facility] will follow-up with the home health order.
--- NOTE | 2022-07-31 13:35 | NUR ---
PATIENT DISCHARGED Patient given medication reconciliation form and D/C instructions. Exit Care on Chest Pain, Mitral and Tricuspid valve Regurgitation, Keflex and Bronchitis explained and provided. Patient verbalized her understanding. MD discussed with patient the results and treatment provided. Ambulatory with steady gait for discharge to home. Patient in stable condition, ID band removed. IV catheter removed, intact and dressing applied, no active bleeding. Rx sent via eRX. Patient educated on pain management. All belongings sent with patient. Patient left floor via wheelchair to private vehicle in no distress.
[2022-08-02] MEDS ORDERED: NON-FORMULARY MEDICATION (Semaglutide (Ozempic) 2 MG) SQ SCH (09:00)
[2022-08-02] MEDS ORDERED: [UNRECOGNIZED DRUG - OTHER] SUBCUT SCH (09:00)
--- NOTE | 2022-08-13 16:28 | NUR ---
IV ADMINISTRATION END TIME (Observation Patients ONLY): late entry IV infusion of D5NS at 50 ml/hr started at 22:02 on 07/30/22 and ended at 13:35 on 07/31/22 prior to pt's discharge IV infusion of Rocephin started at 11:44 on 07/30/22 and ended at 12:15 on 07/30/22 IV infusion of Rocephin started at 11:26 on 07/31/22 and ended at 12:00 on 07/31/22
== END 2022-07-31 13:55 | disposition home health service (06) ==
LOC: SED 07:44 → STU 10:09
PROVIDERS: ADMIT Specialist; ATTEND Specialist
DX: I49.9 Cardiac arrhythmia, unspecified (principal); Z20.822 Contact with and (suspected) exposure to COVID-19; J42 Unspecified chronic bronchitis; I11.0 Hypertensive heart disease with heart failure; I50.9 Heart failure, unspecified; I08.1 Rheumatic disorders of both mitral and tricuspid valves; I20.9 Angina pectoris, unspecified; I95.9 Hypotension, unspecified; E86.0 Dehydration; E11.65 Type 2 diabetes mellitus with hyperglycemia; K52.9 Noninfective gastroenteritis and colitis, unspecified; E87.20 Acidosis, unspecified; K21.9 Gastro-esophageal reflux disease without esophagitis; Z79.82 Long term (current) use of aspirin; Z79.899 Other long term (current) drug therapy
CPT/HCPCS: 96365; 96372 ×2; 96375; 80053; 81000; 82962 ×2; 83880; 85025 ×2; 85379; 87040; 87086; 84484; 36415 ×2; 93005; 71045; 71250; 76376; 99291; 83036 ×2; 83605; 87426; 96361 ×2; 96366 ×2; 80048; J0696 ×3; J1650; J1815 ×2; J2405; J2270; J7060; J7030; G0378 ×3

== ENCOUNTER 2022-12-21 14:09 | Inpatient (IN) | payer OTHER, MEDICAID ==
[~2022-12-21] VITALS: Ht 167.6 cm; Wt 70.3 kg
[~2022-12-21 14:09] MED LIST changes: +AMYL1CAP54 PO; -ATEN-168 PO; +ATEN100T PO; +BUSP10TA3 PO; +CEPH250C PO; +FLUT16SP16 NS; +GABA-529 PO; +INSU100V9 SQ; -INSU100V9 SUBCUT; -KLO.5; +L.RH1CAP PO; -LISI20TA30 PO; +LOSA50TA3 PO; -METF1000 PO; -NIRM1TAB PO; -NOR10 PO; -NORT10CA PO; -PARO40TA PO; +SEMA0.25 SQ; +VENL37.55 PO
[2022-12-21 14:10] VITALS: BP_SYST 141
[2022-12-21 15:30] LABS: BASOPHILS # (AUTO) 0.1 K/uL (0.0-0.2); BASOPHILS % (AUTO) 1.5 % (0.0-2.0); EOSINOPHILS # (AUTO) 0.1 K/uL (0.0-0.4); EOSINOPHILS % (AUTO) 1.1 % (0.0-4.0); HEMATOCRIT 40.1 % (36-48); LYMPHOCYTES # (AUTO) 3.1 K/uL (1.0-5.5); LYMPHOCYTES % (AUTO) 36.9 % (20.5-51.5); MEAN CORPUSCULAR HEMOGLOBIN 29 pg (27-31); MEAN CORPUSCULAR HGB CONC 35 % (32-36); MEAN CORPUSCULAR VOLUME 83 fL (79.0-98.0); MONOCYTES # (AUTO) 0.4 K/uL (0.0-1.0); MONOCYTES % (AUTO) 5.2 % (1.7-9.3); NEUTROPHILS # (AUTO) 4.6 K/uL (1.8-7.7); NEUTROPHILS % (AUTO) 55.3 % (40.0-70.0); PLATELET COUNT (AUTO) 223 K/uL (130-430); RED BLOOD CELL COUNT(AUTO) 4.83 MIL/uL (4.2-6.2); RED CELL DISTRIBUTION WIDTH 13.5 % (9.0-15.0); WHITE BLOOD COUNT (AUTO) 8.4 K/uL (4.8-10.8)
[2022-12-21 16:08] LABS: ANION GAP 15 (5-15); CALCIUM 9.2 mg/dL (8.4-11.0); CHLORIDE 94 mmol/L (98-107); CREATININE 1.41 mg/dL (0.55-1.30); GLUCOSE 301 mg/dL (70-99); UREA NITROGEN, BLOOD 25 mg/dL (8-21)
[2022-12-21 16:10] LABS: GFR AFRICAN AMERICAN 48 mL/min (>90)
[2022-12-21 16:12] LABS: ALANINE AMINOTRANSFERASE 68 U/L (12-78); ALBUMIN 4.3 g/dL (3.4-4.8); AMYLASE 73 U/L (0-100); ASPARTATE AMINOTRANSFERASE 36 U/L (10-37); LIPASE 115 U/L (73-393); TOTAL BILIRUBIN 1.6 mg/dL (0.0-1.0)
--- NOTE | 2022-12-21 16:22 | NUR ---
Placed in room 05 . Placed on school bus monitor, blood pressure machine and pulse oximeter. To gown for exam. Side rails up. Report given to PAUL ORDAZ.
[2022-12-21 16:28] LABS: ACETONE, SERUM NEGATIVE (NEGATIVE)
--- NOTE | 2022-12-21 16:30 | NUR ---
PT RECEIVED, CARE ASSUMED. INTRODUCED MYSELF TO PT. PT DENIES ANY PAIN OR DISTRESS. VITAL SIGNS NOTED. WILL CONTINUE TO MONITOR
[2022-12-21] MEDS ORDERED: ASPIRIN 81 MG TAB.CHEW PO ONE (16:45)
[2022-12-21] MEDS ORDERED: MORPHINE 2 MG/ML INJ. SYRINGE IVP ONE (17:00)
--- NOTE | 2022-12-21 17:32 | NUR ---
Admit bed requested Patient will be admitted to care of . Admitted to tele unit. Diagnosis chest pain Inpatient (Yes or No) y Observation (Yes or No) n Orientation concerns or request close to nursing station (Yes or No) n Covid Status neg On vent or bipap n Isolation requirements n Needs a sitter n From Home (Yes or if No enter name of facility) home Requires Dialysis (Yes or No) no Med Rec Completed (Yes of No) no
--- NOTE | 2022-12-21 17:39 | NUR ---
PT LAYING IN BED COMFORTABLE. NO ACUTE DISTRESS NOTED. AT BED SIDE. ACCU CHECK 124. WILL CONTINUE TO MONITOR
--- NOTE | 2022-12-21 18:12 | NUR ---
CRITICAL LAB VALUE: Troponin 206 trending upward from 157.
--- NOTE | 2022-12-21 18:28 | NUR ---
Swabbed COVID. Sent to lab.
--- NOTE | 2022-12-21 19:35 | NUR ---
PATIENT IS AWAKE AND ALERT, VSS. SAFETY PRECAUTIONS IN PLACE. WILL CONTINUE TO MONITOR.
--- NOTE | 2022-12-21 21:30 | NUR ---
SPOKE TO DR. TREVIÑO, INFORMED HIM THAT PATIENTS MEDICATIONS HAS NOT BEEN RECONCILED. MD STATED HE WOULD CHECK PATIENTS HOME MEDS AND RECONCILE THEM. PATIENT AWARE.
[2022-12-21] MEDS ORDERED: ACETAMINOPHEN 500 MG TABLET PO PRN (21:45)
[2022-12-21] MEDS ORDERED: ACETAMINOPHEN 500 MG TABLET ONE (22:01)
[2022-12-21] MEDS: traZODone HCL 50 MG TABLET (DESYREL) PO PRN (23:39)
[2022-12-22] MEDS ORDERED: INSULIN Lispro 100 UNITS/ML, 3 ML VIAL (humaLOG) ONE ×2 (00:58→06:22)
[2022-12-22] MEDS: INSULIN LISPRO SLIDING SCALE 100 UNITS/ML, 3 ML VIAL (humaLOG) SUBCUT PRN ×4 (01:16→17:41)
[2022-12-22 06:20] LABS: CALCIUM 9.1 mg/dL (8.4-11.0); CREATININE 0.99 mg/dL (0.55-1.30)
--- NOTE | 2022-12-22 06:49 | NUR ---
PATIENT RESTING IN BED. VSS. PATIENT DENIES ANY CHEST PAIN. WILL CONTINUE TO MONITOR.
--- NOTE | 2022-12-22 07:30 | NUR ---
ASSUMED PATIENT CARE EYE CLOSE, RESTING COMFORTABLY, DENIES CHEST PAIN AT THIS TIME, WILL CONTINUE TO BE MONITOR.
--- NOTE | 2022-12-22 08:55 | NUR ---
TROPONIN RESULTED 257 ADMITTING PHYSICIAN MADE AWARE.
--- NOTE | 2022-12-22 09:00 | NUR ---
EDP AT BEDSIDE FOR INITIAL ASSESSMENT.
[2022-12-22 09:03] LABS: BASOPHILS % (AUTO) 0.5 % (0.0-2.0); EOSINOPHILS # (AUTO) 0.3 K/uL (0.0-0.4); EOSINOPHILS % (AUTO) 4.1 % (0.0-4.0); HEMOGLOBIN 13.8 g/dL (12.0-16.0); LYMPHOCYTES # (AUTO) 2.9 K/uL (1.0-5.5); LYMPHOCYTES % (AUTO) 47.5 % (20.5-51.5); MEAN CORPUSCULAR HEMOGLOBIN 28 pg (27-31); MEAN CORPUSCULAR HGB CONC 34 % (32-36); MEAN CORPUSCULAR VOLUME 83 fL (79.0-98.0); MONOCYTES # (AUTO) 0.6 K/uL (0.0-1.0); NEUTROPHILS # (AUTO) 2.4 K/uL (1.8-7.7); NEUTROPHILS % (AUTO) 37.9 % (40.0-70.0); PLATELET COUNT (AUTO) 212 K/uL (130-430); RED BLOOD CELL COUNT(AUTO) 4.93 MIL/uL (4.2-6.2); RED CELL DISTRIBUTION WIDTH 13.8 % (9.0-15.0); WHITE BLOOD COUNT (AUTO) 6.2 K/uL (4.8-10.8)
[2022-12-22 09:53] VITALS: BP_SYST 133
--- NOTE | 2022-12-22 10:11 | NUR ---
REPORT GIVEN TO PROSPER MILLER FOR CONTINUITY OF CARE. ALL QUESTIONS AND CONCERNS ADDRESSED. ALL CARED ENDORSED.
[2022-12-22 10:35] VITALS: BP_SYST 133
--- NOTE | 2022-12-22 10:53 | NUR ---
Patient will be admitted to care of [facility]. Admitted to unit. Will go to room . Belongings list completed. Complete and up to date summary report printed. SBAR report to be given at bedside with opportunity for questions.
[2022-12-22] MEDS ORDERED: busPIRone HCL 5 MG TABLET PO ONE (12:15)
[2022-12-22] MEDS ORDERED: FLUTICASONE PROPIONATE 50 mCg/SPRAY 16 GM NS ONE (12:30)
[2022-12-22] MEDS ORDERED: ATENOLOL 50 MG TABLET (TENORMIN) PO ONE (12:30)
[2022-12-22 14:21] VITALS: BP_SYST 140
--- NOTE | 2022-12-22 19:38 | NUR ---
PT HAS BEEN STABLE. NO CHEST PAIN. BLOOD SUGAR CHECKED AND HUMALOG INSULIN GIVEN COVERAGE. PT WILL HAVE STRESS TEST IN AM, PT IS AWARE.
[2022-12-22 20:00] VITALS: BP_SYST 122
[2022-12-22] MEDS: busPIRone HCL 5 MG TABLET PO SCH (21:00)
[2022-12-22] MEDS ORDERED: ATORVASTATIN 20 MG TABLET PO SCH (21:00)
[2022-12-22] MEDS ORDERED: INSULIN GLARGINE 100 UNITS/ML, 10 ML VIAL SUBCUT SCH (21:00)
[2022-12-22] MEDS: GABAPENTIN 300 MG CAPSULE PO SCH (21:15)
[2022-12-22] MEDS: traZODone HCL 50 MG TABLET (DESYREL) PO PRN (21:34)
[2022-12-23] VITALS (7 sets, daily range): BP systolic 81–139
[2022-12-23 04:10] LABS: BASOPHILS % (AUTO) 0.8 % (0.0-2.0); EOSINOPHILS # (AUTO) 0.2 K/uL (0.0-0.4); HEMATOCRIT 40.9 % (36-48); LYMPHOCYTES # (AUTO) 2.8 K/uL (1.0-5.5); LYMPHOCYTES % (AUTO) 45.7 % (20.5-51.5); MEAN CORPUSCULAR HEMOGLOBIN 29 pg (27-31); MEAN CORPUSCULAR HGB CONC 34 % (32-36); MEAN CORPUSCULAR VOLUME 84 fL (79.0-98.0); MONOCYTES # (AUTO) 0.5 K/uL (0.0-1.0); MONOCYTES % (AUTO) 8.5 % (1.7-9.3); NEUTROPHILS # (AUTO) 2.5 K/uL (1.8-7.7); PLATELET COUNT (AUTO) 210 K/uL (130-430); RED BLOOD CELL COUNT(AUTO) 4.89 MIL/uL (4.2-6.2); RED CELL DISTRIBUTION WIDTH 13.5 % (9.0-15.0); WHITE BLOOD COUNT (AUTO) 6.1 K/uL (4.8-10.8)
[2022-12-23 05:10] LABS: ALBUMIN 3.7 g/dL (3.4-4.8); CALCIUM 9.1 mg/dL (8.4-11.0); CREATININE 0.95 mg/dL (0.55-1.30); THYROID STIMULATING HORMONE 1.84 uIu/mL (0.36-3.74); TOTAL BILIRUBIN 0.8 mg/dL (0.0-1.0)
--- NOTE | 2022-12-23 05:35 | NUR ---
FALL Pt roommate used the call light and said "my roommate is on the floor". Upon entering the room pt was lying on the floor in front of A bed. Pt is a/o x4 and ambulatory with bathroom privileges. She stated that she was walking to the bathroom and "just fell". Denies any pain, LOC, or hitting her head. Assisted pt to the bathroom and then back to bed. VSS stable: temp 97.7, HR 90, BP 120/70, O2 95 RA. Primary nurse Morteza notified. Charge nurse and warehouse freight handler notified. Paged Dr Sanches, waiting call back.
[2022-12-23] MEDS: INSULIN LISPRO SLIDING SCALE 100 UNITS/ML, 3 ML VIAL (humaLOG) SUBCUT PRN ×2 (05:57→11:33)
--- NOTE | 2022-12-23 07:35 | NUR ---
OPENING NOTE Patient laying in bed, resting, just returned from Lexiscan. A/O x 4, Kyrgyz speaking. Patient Breathing even and unlabored on RA saturations at 94%. NO pain, no distress, no SOB. Patient on Cardiac diet but currently NPO due to Lexiscan. Patient has IV to RAC 20g, patent on SL. Bed is locked in lowest position. Call light within reach, all needs met, will continue to monitor.
[2022-12-23 08:33] LABS: CHOLESTEROL 188 mg/dL (<200); HDL CHOLESTEROL 35 mg/dL (>55); TRIGLYCERIDES 304 mg/dL (30-150)
[2022-12-23] MEDS ORDERED: FLUTICASONE PROPIONATE 50 mCg/SPRAY 16 GM NS SCH (09:00)
[2022-12-23] MEDS ORDERED: ATENOLOL 50 MG TABLET (TENORMIN) PO SCH (09:00)
[2022-12-23] MEDS ORDERED: PANTOPRAZOLE SODIUM 40 MG TAB PO SCH (09:00)
[2022-12-23] MEDS ORDERED: LOSARTAN POTASSIUM 50 MG TABLET (COZAAR) PO SCH (09:00)
[2022-12-23] MEDS ORDERED: Effexor XR 37.5 MG PO SCH (09:00)
[2022-12-23] MEDS ORDERED: REGADENOSON 0.4 MG/5 ML SYRINGE IVP ONE (09:00)
[2022-12-23] MEDS: busPIRone HCL 5 MG TABLET PO SCH (10:33)
[2022-12-23] MEDS: GABAPENTIN 300 MG CAPSULE PO SCH (10:36)
--- NOTE | 2022-12-23 11:30 | NUR ---
MD: MD Larson at bedside consulting with patient
--- NOTE | 2022-12-23 12:10 | NUR ---
Rounds: Patient laying in bed, resting, Patient Breathing even and unlabored on RA. NO pain, no distress, no SOB. Bed is locked in lowest position. Call light within reach, all needs met, will continue to monitor.
--- NOTE | 2022-12-23 13:48 | NUR ---
MD Larson Spoke with MD regarding Orthostatic BP, noted patient dizzy on sitting/standing. MD changed Cozzar order to 50mg. Orders carried out, educated patient. Patient ready for discharge.
--- NOTE | 2022-12-23 14:27 | NUR ---
D/C Patient Patient given medication reconciliation form and D/C instructions. Exit Care provided. Patient verbalized understanding. MD Larson discussed with patient the results and treatment provided. Ambulatory with steady gait for discharge to home. Patient in stable condition, ID band removed. IV catheter removed, intact and dressing applied, no active bleeding. Patient educated on pain management and medication changes. All belongings sent with patient.
[2022-12-24] MEDS ORDERED: LOSARTAN POTASSIUM 50 MG TABLET (COZAAR) PO SCH (09:00)
== END 2022-12-23 14:33 | disposition home or self-care (01) | DRG 637 ==
LOC: SED 14:09 → STU 17:31
PROVIDERS: ADMIT Internal Medicine; ATTEND Internal Medicine
DX: E11.65 Type 2 diabetes mellitus with hyperglycemia (principal); N17.0 Acute kidney failure with tubular necrosis; I42.1 Obstructive hypertrophic cardiomyopathy; I20.9 Angina pectoris, unspecified; I10 Essential (primary) hypertension; E11.40 Type 2 diabetes mellitus with diabetic neuropathy, unspecified; E78.5 Hyperlipidemia, unspecified; F32.A Depression, unspecified; R77.8 Other specified abnormalities of plasma proteins; F41.9 Anxiety disorder, unspecified; Z20.822 Contact with and (suspected) exposure to COVID-19; I08.1 Rheumatic disorders of both mitral and tricuspid valves; K21.9 Gastro-esophageal reflux disease without esophagitis; Z79.4 Long term (current) use of insulin; Z79.899 Other long term (current) drug therapy; Z90.49 Acquired absence of other specified parts of digestive tract; Z90.710 Acquired absence of both cervix and uterus; Z98.891 History of uterine scar from previous surgery
CPT/HCPCS: 36415; 71045; 80048; 80053; 80061; 82009; 82150; 82962; 83037; 83605; 83690; 83880; 84443; 84484; 85025; 93005; 93017; 93306; 97116-GP; 97163-GP; 99285; A9500; G0378; J1815; J2785

== ENCOUNTER 2023-03-15 10:00 | Inpatient (IN) | payer OTHER, MEDICAID ==
[~2023-03-15] VITALS: Ht 167.6 cm; Wt 73.5 kg
[2023-03-15] MEDS ORDERED: NITROGLYCERIN 1 INCH (GM) OINT. TP ONE (10:16)
[2023-03-15] MEDS ORDERED: MORPHINE 4 MG INJ. 4 MG/ML VIAL IVP ONE ×2 (10:16→15:30)
[2023-03-15 10:18] VITALS: BP_SYST 139
[2023-03-15] MEDS ORDERED: ASPIRIN 325 MG TABLET PO ONE (10:30)
[2023-03-15] MEDS ORDERED: ONDANSETRON HCL 4 MG/2 ML VIAL ONE (11:14)
[2023-03-15 11:25] LABS: BASOPHILS # (AUTO) 0.1 K/uL (0.0-0.2); BASOPHILS % (AUTO) 0.8 % (0.0-2.0); EOSINOPHILS # (AUTO) 0.1 K/uL (0.0-0.4); EOSINOPHILS % (AUTO) 1.9 % (0.0-4.0); HEMATOCRIT 41.9 % (36-48); HEMOGLOBIN 14.4 g/dL (12.0-16.0); LYMPHOCYTES # (AUTO) 2.1 K/uL (1.0-5.5); MEAN CORPUSCULAR HEMOGLOBIN 28 pg (27-31); MEAN CORPUSCULAR HGB CONC 34 % (32-36); MEAN CORPUSCULAR VOLUME 82 fL (79.0-98.0); MONOCYTES # (AUTO) 0.5 K/uL (0.0-1.0); MONOCYTES % (AUTO) 7.2 % (1.7-9.3); NEUTROPHILS # (AUTO) 4.3 K/uL (1.8-7.7); NEUTROPHILS % (AUTO) 60.1 % (40.0-70.0); PLATELET COUNT (AUTO) 180 K/uL (130-430); RED BLOOD CELL COUNT(AUTO) 5.11 MIL/uL (4.2-6.2); RED CELL DISTRIBUTION WIDTH 13.7 % (9.0-15.0); WHITE BLOOD COUNT (AUTO) 7.1 K/uL (4.8-10.8)
[2023-03-15 11:39] LABS: ANION GAP 8 (5-15); CALCIUM 9.6 mg/dL (8.4-11.0); CHLORIDE 94 mmol/L (98-107); CREATININE 0.96 mg/dL (0.55-1.30); GFR AFRICAN AMERICAN 75 mL/min (>90); GLUCOSE 393 mg/dL (70-99); UREA NITROGEN, BLOOD 24 mg/dL (8-21)
[2023-03-15] MEDS ORDERED: ONDANSETRON HCL 4 MG/2 ML VIAL IVP ONE (11:45)
[2023-03-15 11:58] LABS: ALANINE AMINOTRANSFERASE 72 U/L (12-78); ALBUMIN 4.1 g/dL (3.4-4.8); ASPARTATE AMINOTRANSFERASE 36 U/L (10-37); TOTAL BILIRUBIN 1.1 mg/dL (0.0-1.0)
[2023-03-15] MEDS ORDERED: ENOXAPARIN SODIUM 80 MG/0.8 ML SYRINGE SUBCUT ONE (12:30)
[2023-03-15] MEDS ORDERED: INSU100V9 (14:37)
[2023-03-15] MEDS ORDERED: hydrALAZINE HCL 20 MG/ML VIAL IVP ONE (14:45)
[2023-03-15] MEDS ORDERED: LOSA50TA3 PO (14:58)
[2023-03-15] MEDS ORDERED: NEU300 PO (14:58)
[2023-03-15] MEDS ORDERED: AMLO2.5T2 PO (14:58)
[2023-03-15] MEDS ORDERED: HUM100IN SQ (14:58)
[2023-03-15] MEDS ORDERED: DICY10CA13 PO (14:58)
[2023-03-15] MEDS ORDERED: LEVO5TAB13 PO (14:58)
[2023-03-15] MEDS ORDERED: OMEP20CA15 PO (14:58)
[2023-03-15] MEDS ORDERED: INSU100V9 SQ (14:58)
[2023-03-15] MEDS ORDERED: ATEN-168 PO (14:58)
[2023-03-15] MEDS ORDERED: GABA-331 PO (14:58)
[2023-03-15] MEDS ORDERED: LIP20 PO (14:58)
[2023-03-15] MEDS ORDERED: VENL75CA56 PO (14:58)
[2023-03-15] MEDS ORDERED: ONDANSETRON HCL 4 MG/2 ML VIAL IVP PRN (15:15)
[2023-03-15] MEDS ORDERED: POTASSIUM CHLORIDE 20 MEQ TAB.PRT.SR PO PRN (15:15)
[2023-03-15] MEDS ORDERED: MORPHINE 2 MG/ML INJ. SYRINGE IVP PRN ×2 (15:15)
[2023-03-15] MEDS ORDERED: DEXTROSE 50% JECT 50 ML DISP.SYRIN IVP PRN (15:15)
[2023-03-15] MEDS ORDERED: ZOLPIDEM TARTRATE 5 MG TABLET PO PRN (15:15)
[2023-03-15] MEDS ORDERED: ACETAMINOPHEN 325 MG TABLET PO PRN ×2 (15:15→16:30)
[2023-03-15] MEDS ORDERED: MAGNESIUM SULFATE 50 ML IV PRN (15:15)
[2023-03-15] MEDS ORDERED: DOCUSATE SODIUM 100 MG CAPSULE PO PRN (15:15)
[2023-03-15] MEDS ORDERED: MUPIROCIN 2% TOPICAL OINTMENT 22 GM NS PRN (15:15)
[2023-03-15] MEDS ORDERED: NALOXONE HCL 0.4 MG/ML AMP (NARCAN) IVP PRN ×2 (15:15)
[2023-03-15] MEDS ORDERED: LORazepam 2 MG/ML VIAL IVP PRN (15:15)
[2023-03-15 16:32] VITALS: BP_SYST 102
[2023-03-15] MEDS: NACL 0.9% 1,000 ML IV SCH (17:21)
[2023-03-15] MEDS: INSULIN LISPRO SLIDING SCALE 100 UNITS/ML, 3 ML VIAL (humaLOG) SUBCUT PRN ×2 (17:44→21:59)
[2023-03-15 20:00] VITALS: BP_SYST 123
[2023-03-15] MEDS ORDERED: GABAPENTIN 300 MG CAPSULE PO SCH (21:00)
[2023-03-15] MEDS: Effexor 37.5 MG TAB PO SCH (21:00)
[2023-03-15] MEDS: busPIRone HCL 5 MG TABLET PO SCH (21:48)
[2023-03-15] MEDS ORDERED: METOPROLOL TARTRATE 25 MG TABLET PO ONE (23:15)
[2023-03-15] MEDS: GABAPENTIN 100 MG CAPSULE PO SCH (23:56)
[2023-03-16 00:38] VITALS: BP_SYST 112
[2023-03-16] MEDS: NACL 0.9% 1,000 ML IV SCH (04:02)
[2023-03-16] MEDS: INSULIN LISPRO SLIDING SCALE 100 UNITS/ML, 3 ML VIAL (humaLOG) SUBCUT PRN ×2 (06:28→12:12)
[2023-03-16 06:37] LABS: BASOPHILS % (AUTO) 0.4 % (0.0-2.0); EOSINOPHILS # (AUTO) 0.2 K/uL (0.0-0.4); EOSINOPHILS % (AUTO) 2.5 % (0.0-4.0); HEMATOCRIT 36.5 % (36-48); HEMOGLOBIN 12.5 g/dL (12.0-16.0); LYMPHOCYTES # (AUTO) 2.4 K/uL (1.0-5.5); LYMPHOCYTES % (AUTO) 33.1 % (20.5-51.5); MEAN CORPUSCULAR HEMOGLOBIN 28 pg (27-31); MEAN CORPUSCULAR HGB CONC 34 % (32-36); MEAN CORPUSCULAR VOLUME 83 fL (79.0-98.0); MONOCYTES # (AUTO) 0.6 K/uL (0.0-1.0); MONOCYTES % (AUTO) 8.9 % (1.7-9.3); NEUTROPHILS % (AUTO) 55.1 % (40.0-70.0); PLATELET COUNT (AUTO) 152 K/uL (130-430); RED BLOOD CELL COUNT(AUTO) 4.42 MIL/uL (4.2-6.2); RED CELL DISTRIBUTION WIDTH 13.8 % (9.0-15.0); WHITE BLOOD COUNT (AUTO) 7.2 K/uL (4.8-10.8)
[2023-03-16 06:47] LABS: CALCIUM 8.3 mg/dL (8.4-11.0); CREATININE 0.87 mg/dL (0.55-1.30)
[2023-03-16] MEDS: GABAPENTIN 100 MG CAPSULE PO SCH (08:37)
[2023-03-16] MEDS: busPIRone HCL 5 MG TABLET PO SCH (08:38)
[2023-03-16] MEDS: LIPASE/PROTEASE/AMYLASE 1 CAP PO SCH ×2 (08:38→12:11)
[2023-03-16] MEDS: Effexor 37.5 MG TAB PO SCH ×2 (08:39→09:00)
[2023-03-16] MEDS ORDERED: GABAPENTIN 300 MG CAPSULE PO SCH (09:00)
[2023-03-16] MEDS ORDERED: METOPROLOL SUCCINATE 50 MG TAB.SR.24H (TOPROL XL) PO SCH (09:00)
[2023-03-16] MEDS ORDERED: ATORVASTATIN 20 MG TABLET PO SCH (09:00)
[2023-03-16] MEDS ORDERED: VENLAFAXINE HCL Non-Formulary 75 MG CAP.SR.24H PO SCH (09:00)
[2023-03-16] MEDS ORDERED: OMEPRAZOLE Non-Formulary 20 MG CAPSULE.DR PO SCH (09:00)
[2023-03-16] MEDS ORDERED: Effexor XR 37.5 MG PO SCH (09:00)
[2023-03-16] MEDS ORDERED: ATENOLOL 50 MG TABLET (TENORMIN) PO SCH (09:00)
[2023-03-16] MEDS ORDERED: LOSARTAN POTASSIUM 50 MG TABLET (COZAAR) PO SCH (09:00)
[2023-03-16] MEDS ORDERED: PANTOPRAZOLE SODIUM 40 MG TAB PO SCH (09:00)
[2023-03-16] MEDS ORDERED: ENOXAPARIN SODIUM 40 MG/0.4 ML SYRINGE SUBCUT SCH (09:00)
[2023-03-16 12:11] VITALS: BP_SYST 142
[2023-03-16] MEDS ORDERED: INSULIN GLARGINE 100 UNITS/ML, 10 ML VIAL SQ SCH (21:00)
[2023-03-17] MEDS ORDERED: ATORVASTATIN 20 MG TABLET PO SCH (21:00)
== END 2023-03-16 13:25 | disposition home or self-care (01) | DRG 302 ==
LOC: SED 10:00 → STU 14:21
PROVIDERS: ADMIT Specialist; ATTEND Specialist
DX: I25.119 Atherosclerotic heart disease of native coronary artery with unspecified angina pectoris (principal); E11.00 Type 2 diabetes mellitus with hyperosmolarity without nonketotic hyperglycemic-hyperosmolar coma (NKHHC); I24.8 Other forms of acute ischemic heart disease; E11.65 Type 2 diabetes mellitus with hyperglycemia; I42.1 Obstructive hypertrophic cardiomyopathy; I48.91 Unspecified atrial fibrillation; I34.0 Nonrheumatic mitral (valve) insufficiency; K21.9 Gastro-esophageal reflux disease without esophagitis; I10 Essential (primary) hypertension; E78.5 Hyperlipidemia, unspecified; F41.9 Anxiety disorder, unspecified; F32.A Depression, unspecified; Z90.49 Acquired absence of other specified parts of digestive tract; Z90.710 Acquired absence of both cervix and uterus
CPT/HCPCS: 36415; 71045; 80048; 80053; 82962; 83037; 83735; 83880; 84484; 85025; 85379; 93005; 96372; 96374; 96375; 96376; 99291; G0378; J0360; J1650; J2270; J2405

== ENCOUNTER 2023-05-18 20:00 | Emergency (ER) | payer OTHER, MEDICAID ==
[~2023-05-18] VITALS: Ht 167.6 cm; Wt 68.0 kg
[~2023-05-18 20:00] MED LIST changes: +AMLO2.5T2 PO; +ATEN-168 PO; +DICY10CA13 PO; +GABA-331 PO; +HUM100IN SQ; +INSU100V9; +LEVO5TAB13 PO; +NEU300 PO; +VENL75CA56 PO
[2023-05-18 20:22] VITALS: BP_SYST 96; PULSE 94; RESP 19; TEMP 98.2; O2SAT 96
[2023-05-18] MEDS ORDERED: NACL 0.9% 1,000 ML IV ONE (21:15)
[2023-05-18 22:06] LABS: BASOPHILS # (AUTO) 0.1 K/uL (0.0-0.2); BASOPHILS % (AUTO) 1.5 % (0.0-2.0); EOSINOPHILS # (AUTO) 0.3 K/uL (0.0-0.4); EOSINOPHILS % (AUTO) 3.7 % (0.0-4.0); HEMOGLOBIN 13.5 g/dL (12.0-16.0); LYMPHOCYTES # (AUTO) 3.3 K/uL (1.0-5.5); LYMPHOCYTES % (AUTO) 41.3 % (20.5-51.5); MEAN CORPUSCULAR HEMOGLOBIN 28 pg (27-31); MEAN CORPUSCULAR HGB CONC 34 % (32-36); MEAN CORPUSCULAR VOLUME 83 fL (79.0-98.0); MONOCYTES # (AUTO) 0.6 K/uL (0.0-1.0); MONOCYTES % (AUTO) 7.1 % (1.7-9.3); NEUTROPHILS # (AUTO) 3.7 K/uL (1.8-7.7); NEUTROPHILS % (AUTO) 46.4 % (40.0-70.0); PLATELET COUNT (AUTO) 213 K/uL (130-430); RED BLOOD CELL COUNT(AUTO) 4.81 MIL/uL (4.2-6.2); RED CELL DISTRIBUTION WIDTH 14.3 % (9.0-15.0); WHITE BLOOD COUNT (AUTO) 7.9 K/uL (4.8-10.8)
[2023-05-18 22:08] LABS: BILIRUBIN,URINE NEGATIVE (NEGATIVE); BLOOD, URINE NEGATIVE (NEGATIVE); CLARITY/URINE CLEAR (CLEAR); COLOR,URINE YELLOW (YELLOW); GLUCOSE,URINE NEGATIVE (NEGATIVE); KETONES,URINE NEGATIVE (NEGATIVE); LEUKOCYTE ESTERASE ,URINE 1+ (NEGATIVE); NITRITE, URINE NEGATIVE (NEGATIVE); PROTEIN URINE TRACE (NEGATIVE)
[2023-05-18 22:22] LABS: ALANINE AMINOTRANSFERASE 68 U/L (12-78); ANION GAP 6 (5-15); ASPARTATE AMINOTRANSFERASE 53 U/L (10-37); CHLORIDE 103 mmol/L (98-107); CREATININE 0.98 mg/dL (0.55-1.30); GFR AFRICAN AMERICAN 73 mL/min (>90); GLUCOSE 153 mg/dL (74-106); TOTAL BILIRUBIN 1.1 mg/dL (0.0-1.0); UREA NITROGEN, BLOOD 23 mg/dL (8-21)
[2023-05-18 22:28] LABS: BACTERIA,URINE RARE /HPF (None Seen); RBC,URINE 0-3 /HPF (0-3)
[2023-05-18 22:29] LABS: HYALINE CASTS, URINE 0-10 /LPF (None Seen); MUCUS,URINE 2+ /LPF (None Seen)
[2023-05-18] MEDS ORDERED: IBUP-1969 PO (23:23)
[2023-05-18] MEDS ORDERED: IBUPROFEN 600 MG TABLET PO ONE (23:30)
[2023-05-19] VITALS: BP_SYST 129; PULSE 86; RESP 18; TEMP 97.7; O2SAT 99
== END 2023-05-19 01:00 | disposition home or self-care (01) ==
LOC: SED 20:00
DX: S80.11XA Contusion of right lower leg, initial encounter (principal); S50.11XA Contusion of right forearm, initial encounter; E11.9 Type 2 diabetes mellitus without complications; K21.9 Gastro-esophageal reflux disease without esophagitis; I10 Essential (primary) hypertension; Z79.4 Long term (current) use of insulin; Z79.899 Other long term (current) drug therapy; W19.XXXA Unspecified fall, initial encounter; Y93.89 Activity, other specified; Y92.89 Other specified places as the place of occurrence of the external cause; Y99.8 Other external cause status
CPT/HCPCS: 99285; 96360; 70450; 80053; 81000; 85025; 87086; 84484; 36415; 93005; 73090; 73590; 76376; J7030

== ENCOUNTER 2023-09-07 15:05 | Inpatient (IN) | payer OTHER, MEDICAID ==
[~2023-09-07] VITALS: Ht 167.6 cm; Wt 74.4 kg
[~2023-09-07 15:05] MED LIST changes: +DICY-14 PO; -DICY10CA13 PO; +IBUP-1969 PO; +LOSA-413 PO; -LOSA50TA3 PO
[2023-09-07 15:45] VITALS: BP_SYST 113; PULSE 92; RESP 20; TEMP 98.1; O2SAT 97
[2023-09-07] MEDS ORDERED: MORPHINE 4 MG INJ. 4 MG/ML VIAL IVP ONE ×2 (16:30→19:45)
[2023-09-07] MEDS ORDERED: ONDANSETRON HCL 4 MG/2 ML VIAL IVP ONE ×2 (16:30→19:45)
[2023-09-07] MEDS ORDERED: FAMOTIDINE PF 20 MG/2 ML VIAL IVP ONE (16:30)
[2023-09-07 16:45] LABS: BILIRUBIN,URINE NEGATIVE (NEGATIVE); COLOR,URINE YELLOW (YELLOW); GLUCOSE,URINE NEGATIVE (NEGATIVE); KETONES,URINE NEGATIVE (NEGATIVE); LEUKOCYTE ESTERASE ,URINE 2+ (NEGATIVE); NITRITE, URINE NEGATIVE (NEGATIVE); PROTEIN URINE NEGATIVE (NEGATIVE); UROBILINOGEN,URINE 0.2 (0.2-1.0)
[2023-09-07 16:47] LABS: BASOPHILS % (AUTO) 0.6 % (0.0-2.0); EOSINOPHILS # (AUTO) 0.2 K/uL (0.0-0.4); EOSINOPHILS % (AUTO) 2.6 % (0.0-4.0); HEMATOCRIT 42.5 % (36-48); HEMOGLOBIN 14.3 g/dL (12.0-16.0); LYMPHOCYTES # (AUTO) 3.1 K/uL (1.0-5.5); LYMPHOCYTES % (AUTO) 40.7 % (20.5-51.5); MEAN CORPUSCULAR HEMOGLOBIN 28 pg (27-31); MEAN CORPUSCULAR HGB CONC 34 % (32-36); MEAN CORPUSCULAR VOLUME 84 fL (79.0-98.0); MONOCYTES # (AUTO) 0.5 K/uL (0.0-1.0); MONOCYTES % (AUTO) 7.1 % (1.7-9.3); NEUTROPHILS # (AUTO) 3.8 K/uL (1.8-7.7); PLATELET COUNT (AUTO) 247 K/uL (130-430); RED BLOOD CELL COUNT(AUTO) 5.05 MIL/uL (4.2-6.2); RED CELL DISTRIBUTION WIDTH 13.4 % (9.0-15.0); WHITE BLOOD COUNT (AUTO) 7.7 K/uL (4.8-10.8)
[2023-09-07 16:51] LABS: BLOOD, URINE TRACE (NEGATIVE)
[2023-09-07 16:59] LABS: ANION GAP 9 (5-15); CALCIUM 10.1 mg/dL (8.4-11.0); CARBON DIOXIDE 29 mmol/L (23-29); CHLORIDE 102 mmol/L (98-107); CREATININE 1.07 mg/dL (0.55-1.30); GFR AFRICAN AMERICAN 66 mL/min (>90); GLUCOSE 183 mg/dL (74-106); POTASSIUM 4.2 mmol/L (3.5-5.1); SODIUM SERUM 140 mmol/L (136-145); UREA NITROGEN, BLOOD 20 mg/dL (8-21)
[2023-09-07 17:11] LABS: ALANINE AMINOTRANSFERASE 74 U/L (12-78); ALBUMIN 4.3 g/dL (3.4-4.8); ASPARTATE AMINOTRANSFERASE 46 U/L (10-37); BILIRUBIN,DIRECT 0.2 mg/dL (0.0-0.3); LIPASE 29 U/L (16-77); TOTAL BILIRUBIN 0.7 mg/dL (0.0-1.0); TOTAL PROTEIN, SERUM 7.9 g/dL (6.4-8.3)
[2023-09-07 17:19] LABS: GFR NON AFRICAN-AMERICAN 54 mL/min (>90)
[2023-09-07] MEDS ORDERED: NACL 0.9% 1,000 ML IV ONE ×2 (17:45→19:45)
[2023-09-07] MEDS ORDERED: cefTRIAXone 1 GM IVPB PREMIX 50 ML IV ONE (17:45)
[2023-09-07 17:52] LABS: BACTERIA,URINE MANY /HPF (None Seen); RBC,URINE 0-3 /HPF (0-3); WBC,URINE 20-50 /HPF (0-3)
[2023-09-07 17:53] LABS: CALCIUM OXALATE CRYSTALS,UR 0-10 /HPF (None Seen); MUCUS,URINE 1+ /LPF (None Seen)
[2023-09-07 17:54] LABS: CLARITY/URINE CLOUDY (CLEAR)
[2023-09-07] MEDS ORDERED: MORPHINE 2 MG/ML INJ. SYRINGE IVP PRN (20:30)
[2023-09-07] MEDS ORDERED: ACETAMINOPHEN 325 MG TABLET PO PRN ×2 (20:30→20:45)
[2023-09-07] MEDS ORDERED: ONDANSETRON HCL 4 MG/2 ML VIAL IVP PRN (20:30)
[2023-09-07] MEDS ORDERED: HYDROcodone/ACETAMIN 5-325 MG TAB (NORCO/ VICODIN) PO PRN (20:30)
[2023-09-07] MEDS ORDERED: DEXTROSE 50% JECT 50 ML DISP.SYRIN IVP PRN (20:45)
[2023-09-07] MEDS ORDERED: GLUCOSE (DEXTROSE) ORAL GEL -Adults PO PRN (20:45)
[2023-09-07] MEDS ORDERED: busPIRone HCL 5 MG TABLET PO SCH (21:00)
[2023-09-07] MEDS ORDERED: ATORVASTATIN 20 MG TABLET PO SCH (21:00)
[2023-09-07] MEDS ORDERED: cefTRIAXone 1 GM in D5W 50 ML IV SCH (22:15)
[2023-09-07] MEDS ORDERED: METOCLOPRAMIDE HCL 10 MG TABLET PO SCH (22:15)
[2023-09-07 22:32] VITALS: BP_SYST 113; PULSE 91; RESP 17; TEMP 98.2
[2023-09-07] MEDS: NACL 0.9% 1,000 ML IV SCH (22:45)
[2023-09-07 22:50] VITALS: O2SAT 95
[2023-09-08] VITALS (7 sets, daily range): BP systolic 102–135; PULSE 81–90; RESP 16–18; TEMP 97.2–98.2; O2SAT 94–98
[2023-09-08] MEDS ORDERED: cefTRIAXone 1 GM in D5W 50 ML IV SCH ×2 (03:30→05:00)
[2023-09-08] MEDS: METOCLOPRAMIDE HCL 10 MG TABLET PO SCH ×2 (06:00→19:13)
[2023-09-08 07:52] LABS: BASOPHILS # (AUTO) 0.1 K/uL (0.0-0.2); BASOPHILS % (AUTO) 1.2 % (0.0-2.0); EOSINOPHILS # (AUTO) 0.3 K/uL (0.0-0.4); EOSINOPHILS % (AUTO) 5.4 % (0.0-4.0); HEMATOCRIT 36.8 % (36-48); LYMPHOCYTES # (AUTO) 2.2 K/uL (1.0-5.5); LYMPHOCYTES % (AUTO) 39.3 % (20.5-51.5); MEAN CORPUSCULAR HEMOGLOBIN 27 pg (27-31); MEAN CORPUSCULAR HGB CONC 33 % (32-36); MEAN CORPUSCULAR VOLUME 84 fL (79.0-98.0); MONOCYTES # (AUTO) 0.4 K/uL (0.0-1.0); MONOCYTES % (AUTO) 7.6 % (1.7-9.3); NEUTROPHILS # (AUTO) 2.6 K/uL (1.8-7.7); NEUTROPHILS % (AUTO) 46.5 % (40.0-70.0); PLATELET COUNT (AUTO) 173 K/uL (130-430); RED BLOOD CELL COUNT(AUTO) 4.39 MIL/uL (4.2-6.2); RED CELL DISTRIBUTION WIDTH 13.4 % (9.0-15.0); WHITE BLOOD COUNT (AUTO) 5.6 K/uL (4.8-10.8)
[2023-09-08 08:07] LABS: HEMOGLOBIN A1C 8.92 % (<5.7)
[2023-09-08 08:19] LABS: ALBUMIN 3.2 g/dL (3.4-4.8); CALCIUM 8.3 mg/dL (8.4-11.0); CREATININE 0.76 mg/dL (0.55-1.30); POTASSIUM 3.9 mmol/L (3.5-5.1); TOTAL BILIRUBIN 0.8 mg/dL (0.0-1.0)
[2023-09-08] MEDS: ATENOLOL 50 MG TABLET (TENORMIN) PO SCH (08:37)
[2023-09-08] MEDS: ATORVASTATIN 20 MG TABLET PO SCH (08:37)
[2023-09-08] MEDS: NACL 0.9% 1,000 ML IV SCH ×2 (08:37→17:11)
[2023-09-08] MEDS: LOSARTAN POTASSIUM 50 MG TABLET (COZAAR) PO SCH (08:38)
[2023-09-08] MEDS: busPIRone HCL 5 MG TABLET PO SCH ×2 (08:38→20:36)
[2023-09-08] MEDS: amLODIPine BESYLATE 5 MG TABLET PO SCH (08:39)
[2023-09-08] MEDS: cefTRIAXone 1 GM in D5W 50 ML IV SCH (09:05)
[2023-09-08] MEDS: HYDROcodone/ACETAMIN 5-325 MG TAB (NORCO/ VICODIN) PO PRN ×2 (09:12→20:46)
[2023-09-08] MEDS: INSULIN REGULAR, HUMAN 100 UNITS/ML, 3 ML VIAL (humuLIN R) SUBCUT PRN ×2 (11:48→20:50)
[2023-09-08] MEDS ORDERED: PANTOPRAZOLE SODIUM 40 MG/VIAL (PROTONIX) IVP ONE (13:15)
[2023-09-09 00:09] VITALS: BP_SYST 122; PULSE 77; RESP 18; TEMP 98.1; O2SAT 97
[2023-09-09] MEDS: METOCLOPRAMIDE HCL 10 MG TABLET PO SCH ×3 (00:11→12:00)
[2023-09-09] MEDS: NACL 0.9% 1,000 ML IV SCH (02:11)
[2023-09-09 08:00] VITALS: BP_SYST 137; PULSE 77; RESP 18; TEMP 98.4; O2SAT 98
[2023-09-09] MEDS: cefTRIAXone 1 GM in D5W 50 ML IV SCH (08:51)
[2023-09-09] MEDS ORDERED: PANTOPRAZOLE SODIUM 40 MG/VIAL (PROTONIX) IVP SCH (09:00)
[2023-09-09] MEDS: ATORVASTATIN 20 MG TABLET PO SCH (10:44)
[2023-09-09] MEDS: amLODIPine BESYLATE 5 MG TABLET PO SCH (10:45)
[2023-09-09] MEDS: LOSARTAN POTASSIUM 50 MG TABLET (COZAAR) PO SCH (10:46)
[2023-09-09] MEDS: ATENOLOL 50 MG TABLET (TENORMIN) PO SCH (10:46)
[2023-09-09] MEDS: busPIRone HCL 5 MG TABLET PO SCH (10:47)
[2023-09-09 11:23] VITALS: BP_SYST 151; PULSE 89; RESP 16; TEMP 97.7; O2SAT 93
[2023-09-09] MEDS ORDERED: CEPH250C PO (11:57)
[2023-09-09 12:00] VITALS: BP_SYST 128; PULSE 77; RESP 18; TEMP 98.2; O2SAT 99
[2023-09-09 12:25] VITALS: BP_SYST 128; PULSE 77; RESP 18; TEMP 98.4; O2SAT 98
[2023-09-09 13:06] LABS: HEPATITIS A AB, IgM Negative (Negative); HEPATITIS B CORE AB, IgM Negative (Negative); HEPATITIS B SURFACE AG Negative (Negative)
== END 2023-09-09 12:41 | disposition home or self-care (01) | DRG 389 ==
LOC: SED 15:05 → SMU 20:26
PROVIDERS: ADMIT Family Medicine; ATTEND Family Medicine
DX: K56.7 Ileus, unspecified (principal); N39.0 Urinary tract infection, site not specified; K52.9 Noninfective gastroenteritis and colitis, unspecified; E11.9 Type 2 diabetes mellitus without complications; I10 Essential (primary) hypertension; E78.5 Hyperlipidemia, unspecified; I48.91 Unspecified atrial fibrillation; R74.01 Elevation of levels of liver transaminase levels; Z90.49 Acquired absence of other specified parts of digestive tract; Z79.4 Long term (current) use of insulin; Z79.899 Other long term (current) drug therapy
CPT/HCPCS: 36415; 76376; 80048; 80053; 80074; 80076; 81000; 81001; 81015; 82962; 83037; 83605; 83690; 84484; 85025; 87040; 87086; 93005; 96365; 96375; 99291; C9113; J0696; J1815; J2270; J2405; J3490; J7060; J8597

== ENCOUNTER 2024-05-01 17:59 | Emergency (ER) | payer MEDICAID, OTHER ==
[~2024-05-01] VITALS: Ht 167.6 cm; Wt 72.6 kg
[~2024-05-01 17:59] MED LIST changes: +BUSP30TA2; -CEPH250C PO; -DICY-14 PO; -GABA-529 PO; -HUM100IN SQ; -IBUP-1969 PO; -INSU100V9; -LEVO5TAB13 PO; -LIP20 PO; -SEMA0.25 SQ; +SSNOVOLOG SUBCUT; +VENL150C53 PO; -VENL37.55 PO; +VIS25 PO
[2024-05-01 18:05] VITALS: BP_SYST 129; PULSE 72; RESP 16; TEMP 97.6; O2SAT 95
[2024-05-01] MEDS ORDERED: TRAM50TA2 PO ×2 (19:01→19:03)
[2024-05-01 19:02] VITALS: BP_SYST 129; PULSE 72; RESP 16; TEMP 97.6; O2SAT 95
== END 2024-05-01 19:20 | disposition home or self-care (01) ==
LOC: SED 17:59
DX: H57.12 Ocular pain, left eye (principal); R51.9 Headache, unspecified; E11.9 Type 2 diabetes mellitus without complications; I10 Essential (primary) hypertension; K21.9 Gastro-esophageal reflux disease without esophagitis; Z98.42 Cataract extraction status, left eye; Z79.899 Other long term (current) drug therapy; Z79.2 Long term (current) use of antibiotics
CPT/HCPCS: 99283

== ENCOUNTER 2024-07-28 21:03 | Emergency (ER) | payer OTHER ==
[~2024-07-28] VITALS: Ht 167.6 cm; Wt 72.6 kg
[~2024-07-28 21:03] MED LIST changes: +TRAM50TA2 PO
[2024-07-28 21:12] VITALS: BP_SYST 125; PULSE 93; RESP 20; TEMP 98; O2SAT 98
[2024-07-28 22:00] LABS: BASOPHILS % (AUTO) 0.2 % (0.0-2.0); EOSINOPHILS % (AUTO) 0.1 % (0.0-4.0); HEMOGLOBIN 14.7 g/dL (12.0-16.0); LYMPHOCYTES # (AUTO) 1.1 K/uL (1.0-5.5); LYMPHOCYTES % (AUTO) 12.3 % (20.5-51.5); MEAN CORPUSCULAR HEMOGLOBIN 29 pg (27-31); MEAN CORPUSCULAR HGB CONC 34 % (32-36); MEAN CORPUSCULAR VOLUME 85 fL (79.0-98.0); MONOCYTES # (AUTO) 0.4 K/uL (0.0-1.0); MONOCYTES % (AUTO) 4.8 % (1.7-9.3); NEUTROPHILS # (AUTO) 7.4 K/uL (1.8-7.7); NEUTROPHILS % (AUTO) 82.6 % (40.0-70.0); PLATELET COUNT (AUTO) 181 K/uL (130-430); RED BLOOD CELL COUNT(AUTO) 5.06 MIL/uL (4.2-6.2); RED CELL DISTRIBUTION WIDTH 14.6 % (9.0-15.0)
[2024-07-28 22:14] LABS: ALANINE AMINOTRANSFERASE 49 U/L (12-78); ALBUMIN 4.1 g/dL (3.4-4.8); ANION GAP 10 (5-15); ASPARTATE AMINOTRANSFERASE 33 U/L (10-37); CALCIUM 9.1 mg/dL (8.4-11.0); CARBON DIOXIDE 28 mmol/L (23-29); CHLORIDE 98 mmol/L (98-107); CREATININE 1.29 mg/dL (0.55-1.30); GFR AFRICAN AMERICAN 53 mL/min (>90); GFR NON AFRICAN-AMERICAN 44 mL/min (>90); GLUCOSE 189 mg/dL (74-106); SODIUM SERUM 136 mmol/L (136-145); TOTAL BILIRUBIN 1.5 mg/dL (0.0-1.0); UREA NITROGEN, BLOOD 19 mg/dL (8-21)
[2024-07-28 22:16] LABS: BILIRUBIN,DIRECT 0.3 mg/dL (0.0-0.3); LIPASE 19 U/L (16-77)
[2024-07-28] MEDS ORDERED: DICYCLOMINE HCL 10 MG/5 ML SOLUTION ONE (22:28)
[2024-07-28] MEDS: NACL 0.9% 1,000 ML IV ONE (22:28)
[2024-07-28] MEDS: ONDANSETRON HCL 4 MG/2 ML VIAL IVP ONE (22:29)
[2024-07-28] MEDS: DICYCLOMINE HCL 10 MG/5 ML SOLUTION PO ONE (22:31)
[2024-07-28] MEDS: KETOROLAC TROMETHAMINE 15 MG VIAL IVP ONE (22:31)
[2024-07-29 00:08] LABS: BILIRUBIN,URINE NEGATIVE (NEGATIVE); CLARITY/URINE CLEAR (CLEAR); COLOR,URINE YELLOW (YELLOW); GLUCOSE,URINE 3+ (NEGATIVE); KETONES,URINE NEGATIVE (NEGATIVE); LEUKOCYTE ESTERASE ,URINE NEGATIVE (NEGATIVE); NITRITE, URINE POSITIVE (NEGATIVE); PH,URINE 6.5 (5.0-8.0); PROTEIN URINE NEGATIVE (NEGATIVE); UROBILINOGEN,URINE 0.2 (0.2-1.0)
[2024-07-29 00:09] LABS: BLOOD, URINE TRACE (NEGATIVE)
[2024-07-29 00:44] LABS: BACTERIA,URINE MANY /HPF (None Seen)
[2024-07-29] MEDS ORDERED: ONDA-8 TL (01:11)
[2024-07-29] MEDS ORDERED: LOPE2CAP PO (01:11)
[2024-07-29] MEDS ORDERED: CEPH-548 PO (01:11)
[2024-07-29] MEDS: cefTRIAXone 1 GM IVPB PREMIX 50 ML IV ONE (01:40)
[2024-07-29 02:10] VITALS: BP_SYST 125; PULSE 93; RESP 20; TEMP 98; O2SAT 98
== END 2024-07-29 02:10 | disposition home or self-care (01) ==
LOC: SED 21:03
DX: A08.4 Viral intestinal infection, unspecified (principal); N39.0 Urinary tract infection, site not specified; R11.10 Vomiting, unspecified; K21.9 Gastro-esophageal reflux disease without esophagitis; I10 Essential (primary) hypertension; E11.9 Type 2 diabetes mellitus without complications; E78.00 Pure hypercholesterolemia, unspecified; E78.5 Hyperlipidemia, unspecified; Z79.899 Other long term (current) drug therapy; Z79.2 Long term (current) use of antibiotics
CPT/HCPCS: 99284; 96375; 96361; 80076; 80048; 81000; 81001; 83690; 85025; 87086; 84484; 36415; 93005; 96365; 81015; J1885; J2405; J7030; J0696; 87186